=== PATIENT | male | born 1995 | race African-American/Black ===

== ENCOUNTER → 2021-08-07 | Outpatient (REF) | LOC: M LABSMTC 13:57 | PROVIDERS: ATTEND Pediatrics | DX: Z20.822 Contact with and (suspected) exposure to COVID-19 (principal) ==

== ENCOUNTER → 2021-08-17 | Outpatient (REF) | LOC: M LABSMTC 12:45 | PROVIDERS: ATTEND Pediatrics | DX: Z20.822 Contact with and (suspected) exposure to COVID-19 (principal) ==

== ENCOUNTER 2022-06-10 16:26 | Emergency (ER) | payer OTHER, SELFPAY ==
[~2022-06-10] VITALS: Ht 188 cm; Wt 112.1 kg
[2022-06-10] MEDS ORDERED: IBUPROFEN 800 MG TAB PO ONE (19:20)
[2022-06-10] MEDS ORDERED: LIDOCAINE 2% W/ EPINEPHRINE 1.7 ML DENTAL INJ SM ONE (19:20)
[2022-06-10] MEDS ORDERED: AUGMENTIN 875 MG TAB PO ONE (19:20)
[2022-06-10] MEDS ORDERED: AMOX875T2 PO (19:33)
[2022-06-10 19:47] VITALS: BP 140/60
== END 2022-06-10 19:48 | disposition home or self-care (01) ==
LOC: M ED 16:26
DX: S02.5XXA Fracture of tooth (traumatic), initial encounter for closed fracture (principal); K08.89 Other specified disorders of teeth and supporting structures; F17.200 Nicotine dependence, unspecified, uncomplicated; Y92.9 Unspecified place or not applicable; Y93.9 Activity, unspecified

== ENCOUNTER 2023-06-04 18:58 | Emergency (ER) | payer OTHER, SELFPAY ==
[~2023-06-04] VITALS: Ht 188 cm; Wt 110.3 kg
[~2023-06-04 18:58] MED LIST: AMOX875T2 PO
[2023-06-04 20:09] LABS: RSV AMPLIFICATION NEGATIVE (NEGATIVE)
[2023-06-05 01:25] VITALS: BP 137/87; TEMP 97.9; O2SAT 99
== END 2023-06-05 01:26 | disposition home or self-care (01) ==
LOC: M ED 18:58
DX: U07.1 COVID-19 (principal); F17.200 Nicotine dependence, unspecified, uncomplicated; F12.10 Cannabis abuse, uncomplicated; Z79.2 Long term (current) use of antibiotics

== ENCOUNTER 2023-06-18 11:26 | Emergency (ER) | payer SELFPAY ==
[~2023-06-18] VITALS: Ht 188 cm; Wt 112.3 kg
[2023-06-18] MEDS ORDERED: diphenhydrAMINE 50MG/ML VIAL IV ONE (13:10)
[2023-06-18] MEDS ORDERED: METOCLOPRAMIDE INJ 10MG/2ML VIAL IV ONE (13:10)
[2023-06-18] MEDS ORDERED: NS 1,000 ML IV ONE (13:10)
[2023-06-18 14:20] VITALS: BP 138/79; TEMP 98.7; O2SAT 100
[2023-06-18] MEDS ORDERED: KETOROLAC 30 MG/ML 1ML VIAL IV ONE (14:30)
[2023-06-18] MEDS ORDERED: RIZA10TA64 PO (15:38)
== END 2023-06-18 15:47 | disposition home or self-care (01) ==
LOC: M ED 13:38
DX: R51.9 Headache, unspecified (principal); F17.200 Nicotine dependence, unspecified, uncomplicated; F12.10 Cannabis abuse, uncomplicated; F10.10 Alcohol abuse, uncomplicated; Z79.899 Other long term (current) drug therapy
CPT/HCPCS: 70450; 96361; 96374; 96375; 99284; J1100; J1200; J1885; J2765

== ENCOUNTER 2023-06-26 10:36 | Emergency (ER) | payer SELFPAY ==
[~2023-06-26] VITALS: Ht 188 cm; Wt 103.6 kg
[~2023-06-26 10:36] MED LIST changes: +RIZA10TA64 PO
[2023-06-26 12:37] LABS: BASO % 0.5 % (0.0-1.0); EOS # 0.1 10^3/uL (0.0-0.5); EOS % 1.1 % (0.0-3.0); HEMATOCRIT 43.8 % (42.0-52.0); HEMOGLOBIN 15.3 g/dl (13.5-17.5); MEAN CORPUSCULAR HEMOGLOBIN 32.4 pg (27.0-33.0); MEAN CORPUSCULAR HGB CONC 34.9 g/dl (32.0-36.5); MEAN CORPUSCULAR VOLUME 92.8 fl (80.0-96.0); MONO # 1.1 10^3/uL (0.0-0.8); MONO % 17.2 % (2.0-8.0); NEUTROPHILS % 48.9 % (36.0-66.0); PLATELET COUNT, AUTOMATED 282 10^3/uL (150-450); RED BLOOD COUNT 4.72 10^6/uL (4.30-6.10); WHITE BLOOD COUNT 6.2 10^3/uL (4.0-10.0)
[2023-06-26 13:06] LABS: BILIRUBIN,DIRECT 0.3 MG/DL (<0.4); BILIRUBIN,TOTAL 1.1 MG/DL (0.3-1.2); TOTAL PROTEIN 7.6 G/DL (5.7-8.2)
[2023-06-26] MEDS ORDERED: NS 1,000 ML IV ONE (13:15)
[2023-06-26] MEDS ORDERED: ONDANSETRON 4MG 2ML VIAL IV ONE (13:15)
[2023-06-26 13:29] LABS: RSV AMPLIFICATION NEGATIVE (NEGATIVE)
[2023-06-26 13:45] VITALS: BP 134/86; TEMP 97.4; O2SAT 98
[2023-06-26] MEDS ORDERED: ONDA4TAB6 PO (14:40)
== END 2023-06-26 15:02 | disposition home or self-care (01) ==
LOC: M ED 10:36
DX: R11.2 Nausea with vomiting, unspecified (principal); R19.7 Diarrhea, unspecified; F17.200 Nicotine dependence, unspecified, uncomplicated; Z79.83 Long term (current) use of bisphosphonates
CPT/HCPCS: 74021; 80047; 80076; 83690; 85025; 87631; 96361; 96374; 99284; J2405